=== PATIENT | female | born 1965 ===

== ENCOUNTER 2019-02-14 07:19 | Day surgery (SDC) | payer BC ==
[~2019-02-14] VITALS: Ht 165.1 cm; Wt 62.6 kg
[2019-02-14] VITALS (10 sets, daily range): BP systolic 103–117; BP diastolic 67–74
--- NOTE | 2019-02-14 06:19 | Anethesia Preoperative Eval ---
Anesthesia Pre-op PMH/ROS General Date of Evaluation: Feb 14, 2019 Time of Evaluation: 06:18 Anesthesiologist: jose ASA Score: ASA 2 Mallampati Score Class I : Soft palate, uvula, fauces, pillars visible Class II: Soft palate, uvula, fauces visible Class III: Soft palate, base of uvula visible Class IV: Only hard plate visible Mallampati Classification: Class II Surgeon: jessica Diagnosis: screening Surgical Procedure: colonoscopy Anesthesia History: none Social History: smoking - nonsmoker Family History: no anesthesia problems Allergies: Coded Allergies: No Known Allergies (Unverified , 02/11/19) Medications: see eMAR Patient NPO?: Yes Past Medical History Cardiovascular: Reports: arrhythmia - sinus bradycardia Musculoskeletal/Integumentary: Reports: OA PSxH Narrative: knee sx Anesthesia Pre-op Phys. Exam Physician Exam Last Vital Signs Date Time Temp Pulse Resp B/P (MAP) Pulse Ox O2 Delivery O2 Flow Rate FiO2 02/14/19 08:07 Room Air 02/14/19 08:04 97.2 52 18 117/73 98 Constitutional: NAD Neurologic: CN 2-12 intact Cardiovascular: RRR Respiratory: CTA Gastrointestinal: S/NT/ND Airway Exam Mallampati Score: Class II MO: full Neck: flexible TMD: 2fb ROM: full Anesthesia Pre-op A/P Studies Pre-op Studies: EKG - sinus bradycardia Risk Assessment & Plan Assessment: asa2 Plan: mac Status Change Before Surgery: No Pre-Antibiotics Drug: Cherie Scott MD Feb 14, 2019 06:19
[~2019-02-14 07:19] MED LIST: Atropine Inj 1mg/10ml Syr IV PRN; DiphenhydrAMINE 50mg/ml Inj IVP PRN; Midazolam 2mg/2ml Inj IVP PRN; fentaNYL 100 mcg/2 mL IV PRN
[2019-02-14] MEDS ORDERED: NKM (08:12)
--- NOTE | 2019-02-14 09:10 | Pre-Procedure Note/Attestation ---
Pre-Procedure Note/Attestation Complete Prior to Procedure Planned Procedure: not applicable Procedure Narrative: colonoscopy Indications for Procedure Pre-Operative Diagnosis: screening Attestation I attest that I discussed the nature of the procedure; its benefits; risks and complications; and alternatives (and the risks and benefits of such alternatives ), prior to the procedure, with the patient (or the patient's legal packaging sales representative). I attest that, if there was a reasonable possibility of needing a blood transfusion, the patient (or the patient's legal packaging sales representative) was given the [facility] standardized written summary, pursuant to the [place] Blood Safety Act ([place] Health and Safety Code # 1645, as amended). I attest that I re-evaluated the patient just prior to the surgery and that there has been no change in the patient's H&P, except as documented below: Jm Owen MD Feb 14, 2019 09:10
--- NOTE | 2019-02-14 09:13 | Short Stay Surgery H&P ---
History of Present Illness History of Present Illness Chief Complaint screening HPI Fortunato Chang is a 53 year old female who was admitted on for Screening Patient History Allergies: Coded Allergies: No Known Allergies (Unverified , 02/11/19) Medication History Scheduled No Known Medications* (NKM - No Known Medications*), 0 ., (Reported) Review of Systems Cardiovascular: Reports: no symptoms Respiratory: Reports: no symptoms Skeletal: Reports: no symptoms Gastrointestinal: Reports: no symptoms Genitourinary: Reports: no symptoms Neurologic: Reports: no symptoms Endocrine: Reports: no symptoms Hematologic: Reports: no symptoms Physical Exam Vital Signs Last Vital Signs Date Time Temp Pulse Resp B/P (MAP) Pulse Ox O2 Delivery O2 Flow Rate FiO2 02/14/19 08:07 Room Air 02/14/19 08:04 97.2 52 18 117/73 98 Skin: normal HENT: normal Heart: normal Lungs: normal Abdomen: normal Extremities: normal Plan Plan of Care colonoscopy Attestation Are the patient's medical conditions optimized for surgery? Attestation Response: yes Jm Owen MD Feb 14, 2019 09:13
[2019-02-14] MEDS ORDERED: Propofol 200mg/20ml IV ONE (09:30)
[2019-02-14] MEDS ORDERED: Lidocaine 1% MPF 10mg/ml 5ml ONE (09:30)
--- NOTE | 2019-02-14 09:55 | Endoscopy Procedure Note ---
Endoscopy Procedure Note General Indication for Procedure: screening Procedures Performed: colonoscopy Operative Findings/Diagnosis: proctitis Specimen: yes Pt Tolerated Procedure Well: Yes Estimated Blood Loss: none Anesthesia Anesthesiologist: jose Anesthesia: MAC Inserted Devices Implant(s) used?: No Quality Quality of Bowel Preparation: Good Did scope reach the cecum?: Yes Was there any complications?: No GI Core Measures 50 yrs or older w/o bx or poly: No 10yrs. F/U recommended: Yes If not recommended, why?: Above average risk 18 years or older w/prev. colo: No Jm Owen MD Feb 14, 2019 09:55
--- NOTE | 2019-02-14 12:20 | Immediate Post-Op Evaluation ---
Immediate Post-Op Evalulation Immediate Post-Op Evalulation Procedure: colonoscopy w/bx Date of Evaluation: Feb 14, 2019 Time of Evaluation: 10:11 IV Fluids: 600ml 0.9ns Blood Products: none Estimated Blood Loss: negligible Blood Pressure Systolic: 103 Blood Pressure Diastolic: 68 Pulse Rate: 53 Respiratory Rate: 18 O2 Sat by Pulse Oximetry: 100 Temperature (Fahrenheit): 97.1 Pain Score (1-10): 0 Nausea: No Vomiting: No Complications none Patient Status: awake, reacts, patent Hydration Status: adequate Drug: Cherie Scott MD Feb 14, 2019 12:20
--- NOTE | 2019-02-14 12:21 | 48 Hour Post Anesthesia Eval ---
Post Anesthesia Evaluation Procedure: colonoscopy w/bx Date of Evaluation: Feb 14, 2019 Time of Evaluation: 10:13 Blood Pressure Systolic: 109 0: 70 Pulse Rate: 58 Respiratory Rate: 18 Temperature (Fahrenheit): 97.1 O2 Sat by Pulse Oximetry: 100 Airway: patent Nausea: No Vomiting: No Pain Intensity: 0 Hydration Status: adequate Cardiopulmonary Status: stable Mental Status/LOC: patient returned to baseline Post-Anesthesia Complications: none Follow-up care needed: N/A Cherie Arboleda MD Feb 14, 2019 12:21
--- NOTE | 2019-02-14 13:00 | Procedure Note ---
DATE OF PROCEDURE: 02/14/2019 SURGEON: Jm Owen M.D. PROCEDURE: Colonoscopy with biopsy. ANESTHESIA: Per Dr. Garcia. INSTRUMENT: Olympus adult flexible colonoscope. INDICATION: Screening colonoscopy. REASON FOR PROCEDURE: The procedure, risks, benefits, and possible consequences, including hemorrhage, aspiration, perforation and infection, and alternative treatments, were explained to the patient/legal guardian by Dr. Jm Owen and the patient/legal guardian understood and accepted these risks. PROCEDURE IN DETAIL: After informed consent was obtained and the patient was adequately sedated, first rectal exam was performed, which was positive for internal hemorrhoids. Then, the scope was advanced from the rectum into the cecum then subsequently terminal ileum. Quality of prep was very good. The patient had normal colonoscopy examination except for minimal inflammation in the rectum area, questionable for mild proctitis. Biopsy from the rectum was obtained. Retroflexion of rectum showed evidence of medium-sized nonbleeding internal hemorrhoids. The patient tolerated the procedure very well without complication. SUMMARY FINDINGS: 1. Minimum proctitis, otherwise normal colonoscopy examination. 2. Internal hemorrhoids. RECOMMENDATIONS: Follow up pathology and treat accordingly. Jm Owen M.D. DR: EMILIE JOB#: [id number] CC:
== END 2019-02-14 11:05 | disposition home or self-care (01) ==
LOC: GAS 07:19 → EDSEX 07:19 → GAS 11:05
DX: Z12.11 Encounter for screening for malignant neoplasm of colon (principal); K64.8 Other hemorrhoids; K62.89 Other specified diseases of anus and rectum; M19.90 Unspecified osteoarthritis, unspecified site; R00.1 Bradycardia, unspecified
CPT/HCPCS: 45380; 93005; J2704; 94003; 94150